=== PATIENT | female | born 1975 | race Caucasian/White ===

== ENCOUNTER 2018-01-27 13:19 | Emergency (ER) | payer BC ==
[~2018-01-27] VITALS: Ht 170.2 cm; Wt 68.0 kg
[2018-01-27 13:20] VITALS: BP_SYST 141
[2018-01-27] MEDS ORDERED: NACL 0.9% 1,000 ML IV ONE (13:24)
[2018-01-27] MEDS ORDERED: ONDANSETRON HCL 4 MG/2 ML VIAL IVP ONE (13:30)
[2018-01-27] MEDS ORDERED: FOLIC ACID 1 MG, THIAMINE HCL 100 MG, MAGNESIUM SULFATE 1 GM, MVI 10 ML in NACL 0.9% 1,... IV ONE (14:00)
[2018-01-27 14:11] LABS: BASOPHILS # (AUTO) 0.1 K/uL (0.0-0.2); BASOPHILS % (AUTO) 0.9 % (0.0-2.0); EOSINOPHILS # (AUTO) 0.2 K/uL (0.0-0.4); EOSINOPHILS % (AUTO) 3.2 % (0.0-4.0); HEMATOCRIT 40.3 % (36-48); LYMPHOCYTES % (AUTO) 13.9 % (20.5-51.5); MEAN CORPUSCULAR HEMOGLOBIN 31 pg (27-31); MEAN CORPUSCULAR HGB CONC 32 % (32-36); MEAN CORPUSCULAR VOLUME 95 fL (79.0-98.0); MONOCYTES # (AUTO) 0.4 K/uL (0.0-1.0); NEUTROPHILS # (AUTO) 5.7 K/uL (1.8-7.7); PLATELET COUNT (AUTO) 344 K/uL (130-430); RED BLOOD CELL COUNT(AUTO) 4.26 MIL/uL (4.2-6.2); RED CELL DISTRIBUTION WIDTH 12.8 % (9.0-15.0); WHITE BLOOD COUNT (AUTO) 7.4 K/uL (4.8-10.8)
[2018-01-27 14:22] LABS: BILIRUBIN,URINE NEGATIVE (NEGATIVE); BLOOD, URINE 3+ (NEGATIVE); CLARITY/URINE HAZY (CLEAR); COLOR,URINE YELLOW (YELLOW); GLUCOSE,URINE NEGATIVE (NEGATIVE); KETONES,URINE NEGATIVE (NEGATIVE); LEUKOCYTE ESTERASE ,URINE TRACE (NEGATIVE); NITRITE, URINE NEGATIVE (NEGATIVE); PH,URINE 5.5 (5.0-8.0); PROTEIN URINE 1+ (NEGATIVE); UROBILINOGEN,URINE 0.2 (0.2-1.0)
[2018-01-27 14:22] LABS: ANION GAP 15 (5-15); CALCIUM 9.2 mg/dL (8.4-11.0); CHLORIDE 102 mmol/L (98-107); CREATININE 0.97 mg/dL (0.55-1.30); GLUCOSE 108 mg/dL (70-99); POTASSIUM 3.8 mmol/L (3.5-5.1); PROTHROMBIN TIME 10.4 SECS (9.5-12.5); SODIUM SERUM 140 mmol/L (136-145); UREA NITROGEN, BLOOD 8 mg/dL (8-21)
[2018-01-27 14:27] LABS: GFR AFRICAN AMERICAN 81 mL/min (>90)
[2018-01-27 14:28] LABS: ACETAMINOPHEN 8 ug/mL (1-30); ALANINE AMINOTRANSFERASE 22 U/L (12-78); ALBUMIN 4.2 g/dL (3.4-4.8); AMYLASE 39 U/L (0-100); ASPARTATE AMINOTRANSFERASE 22 U/L (10-37); LIPASE 79 U/L (73-393); TOTAL BILIRUBIN 0.4 mg/dL (0.0-1.0)
[2018-01-27 14:29] LABS: ALCOHOL, BLOOD < 3 mg/dL (<10)
[2018-01-27 14:34] LABS: BARBITURATE, URINE NEGATIVE (NEG <=200); BENZODIAZEPINE, URINE NEGATIVE (NEG <=150); CANNABINOID, URINE NEGATIVE (NEG <=50); COCAINE, URINE POSITIVE (NEG <=150); METHAMPHETAMINES SCREEN,URINE NEGATIVE (NEG <=500); OPIATE, URINE NEGATIVE (NEG <=100); PHENCYCLIDINE SCREEN,URINE NEGATIVE (NEG <=25); UR TRICYCLIC ANTIDEPRESSANTS NEGATIVE (NEG <=300); URINE AMPHETAMINE NEGATIVE (NEG <=500); URINE METHADONE NEGATIVE (NEG <=200); URINE OXYCODONE SCREEN NEGATIVE (NEG <=100); URINE PROPOXYPHENE SCREEN NEGATIVE (NEG <=300)
[2018-01-27 14:39] LABS: RBC,URINE >100 /HPF (0-3)
[2018-01-27 14:40] LABS: BACTERIA,URINE FEW /HPF (None Seen); MUCUS,URINE None Seen /LPF (None Seen)
[2018-01-27 17:27] VITALS: BP_SYST 134
[2018-01-27] MEDS ORDERED: BUPR75TA8 PO (20:35)
[2018-01-27] MEDS ORDERED: SERT50TA PO (20:36)
== END 2018-01-27 17:28 | disposition home or self-care (01) ==
LOC: SED 13:19
DX: F10.129 Alcohol abuse with intoxication, unspecified (principal); F14.90 Cocaine use, unspecified, uncomplicated; F41.9 Anxiety disorder, unspecified; R03.0 Elevated blood-pressure reading, without diagnosis of hypertension
CPT/HCPCS: 36415; 71045; 80053; 80307; 81000; 81025; 82150; 82550; 83690; 84146; 84484; 85025; 85610; 85730; 93005; 96365; 99284; G0480; G0481; G0482; J2405; J3411; J3475; J3490; J7030

== ENCOUNTER 2018-01-27 20:11 | Emergency (ER) | payer BC ==
[~2018-01-27] VITALS: Ht 170.2 cm; Wt 68.0 kg
[2018-01-27 20:22] VITALS: BP_SYST 131
[2018-01-27] MEDS ORDERED: BUPR75TA8 PO (20:35)
[2018-01-27] MEDS ORDERED: SERT50TA PO (20:36)
[2018-01-27] MEDS ORDERED: NACL 0.9% 1,000 ML IV ONE (20:45)
[2018-01-27] MEDS ORDERED: ONDANSETRON HCL 4 MG/2 ML VIAL IVP ONE (20:45)
[2018-01-27] MEDS ORDERED: ACETAMINOPHEN 500 MG TABLET PO ONE (22:30)
[2018-01-27 23:27] VITALS: BP_SYST 120
== END 2018-01-27 23:27 | disposition home or self-care (01) ==
LOC: SED 20:11
DX: R56.9 Unspecified convulsions (principal); F14.10 Cocaine abuse, uncomplicated; F17.210 Nicotine dependence, cigarettes, uncomplicated; F41.9 Anxiety disorder, unspecified; F43.10 Post-traumatic stress disorder, unspecified; F32.9 Major depressive disorder, single episode, unspecified; Z90.49 Acquired absence of other specified parts of digestive tract
CPT/HCPCS: 70450; 96374; 99284; J2405; J7030